=== PATIENT | male | born 2000 | race Two or more races ===

== ENCOUNTER 2023-05-09 17:11 | Emergency (ER) | payer OTHER ==
[2023-05-09] MEDS ORDERED: Ketorolac Tromethamine 30 MG (1 mL) VIAL ONE (18:43)
[2023-05-09] MEDS ORDERED: Acetaminophen 500 MG TAB ONE (18:43)
== END 2023-05-09 19:22 | disposition home or self-care (01) ==
LOC: CSHERS 17:11
DX: M54.50 Low back pain, unspecified (principal); G89.29 Other chronic pain; R55 Syncope and collapse
CPT/HCPCS: 93005; 96372; J1885